=== PATIENT | female | born 1995 | race Caucasian/White ===

== ENCOUNTER 2017-03-03 18:15 | Emergency (ER) | payer BC ==
[~2017-03-03] VITALS: Ht 165.1 cm; Wt 88.0 kg
[~2017-03-03 18:15] MED LIST: DEPO-PROVER150 MG/ML IM; ENDOCET 5-3251 EACH PO; FLEXERIL10 MG PO; MOTRIN800 MG PO; NAPROSYN500 MG PO; PERCOCET 5/31 TABLET PO; PRENATAL TABLE1 EAC3 PO; RHINOCORT AQUA8.6 G1 NS; TRAMADOL HCL50 MG PO; TUMS500 MG PO; WELLBUTRIN SR100 MG PO; ZANTAC150 MG PO; ZOFRAN ODT4 MG PO
[2017-03-03 18:23] VITALS: BP 106/90
[2017-03-03] MEDS ORDERED: TRILEPTAL150 MG PO (19:07)
[2017-03-03 19:44] LABS: ADD MIUA? YES; BILIRUBIN NEGATIVE; BLOOD NEGATIVE; COLOR YELLOW ((YELLOW)); GLUCOSE (STRIP) NEGATIVE; KETONES NEGATIVE; LEUKOCYTES TRACE; NITRITE NEGATIVE; PROTEIN (STRIP) NEGATIVE; SPECIFIC GRAVITY 1.012 (1.000-1.030); UROBILINOGEN 0.2 MG/DL (0.2-1.0)
[2017-03-03 19:55] LABS: BACTERIA RARE /HPF; EPITHELIAL CELLS RARE /HPF; MUCUS TRACE /LPF; RED BLOOD CELLS 0-5 /HPF (0-5); UCUL ADDED? NO; WHITE BLOOD CELLS 0-5 /HPF (0-5)
[2017-03-04 13:46] LABS: CHLAMYDIA TRACHOMATIS NEGATIVE; NEISSERIA GONORRHOEAE NEGATIVE
== END 2017-03-03 20:56 | disposition home or self-care (01) ==
LOC: EME 18:15
PROVIDERS: Nurse Practitioner Family
DX: R10.30 Lower abdominal pain, unspecified (principal); N89.8 Other specified noninflammatory disorders of vagina; Z11.3 Encounter for screening for infections with a predominantly sexual mode of transmission; Z20.2 Contact with and (suspected) exposure to infections with a predominantly sexual mode of transmission; F17.200 Nicotine dependence, unspecified, uncomplicated
CPT/HCPCS: 81003; 84702; 87210; 87491; 87591; 99281; 99283

== ENCOUNTER 2017-08-18 12:20 | Emergency (ER) | payer BC ==
[~2017-08-18] VITALS: Ht 165.1 cm; Wt 83.0 kg
[~2017-08-18 12:20] MED LIST changes: +TRILEPTAL150 MG PO
[2017-08-18 12:56] LABS: HEMATOCRIT 41.4 % (36.0-46.0); MCHC 33.1 G/DL (30.0-36.0); MCV 87.7 FL (83-99); MEAN PLAT.VOLUME 9.5 uM^3 (9.5-12.4); PLATELET COUNT 255 K/uL (156-360); RBC DIS.WIDTH-CV 12.9 % (11.8-14.6); RBC DIS.WIDTH-SD 41.7 % (39-53); RED BLOOD COUNT 4.72 M/uL (3.80-5.20); WHITE BLOOD COUNT 11.7 K/uL (4.1-10.2)
[2017-08-18 13:05] LABS: CHLORIDE 107 mEq/L (99-109); POTASSIUM 4.1 mEq/L (3.7-5.4); SODIUM 139 mEq/L (136-147)
[2017-08-18 13:07] LABS: GLUCOSE 101 mg/dL (70-99)
[2017-08-18 13:08] LABS: ANION GAP 7 MEQ/L (2-14)
[2017-08-18 13:09] LABS: TOTAL BILIRUBIN 0.4 mg/dL (0.0-1.0)
[2017-08-18 13:11] LABS: ALKALINE PHOSPHATASE 72 IU/L (3-129); GFR ESTIMATE (CALCULATED) > 59 mL/min/
[2017-08-18 13:12] LABS: UREA NITROGEN (BUN) 8 mg/dL (9-23)
[2017-08-18 13:19] LABS: QUANTITATIVE HCG < 4.0 MIU/ML
[2017-08-18] MEDS ORDERED: ZOFRAN ODT4 MG PO (15:36)
[2017-08-18 15:49] LABS: ADD MIUA? YES; BILIRUBIN NEGATIVE; BLOOD NEGATIVE; COLOR AMBER ((YELLOW)); GLUCOSE (STRIP) NEGATIVE; KETONES 5; LEUKOCYTES NEGATIVE; NITRITE NEGATIVE; PROTEIN (STRIP) 30
[2017-08-18 16:03] LABS: BACTERIA RARE /HPF; EPITHELIAL CELLS RARE /HPF; MUCUS 1+ /LPF; RED BLOOD CELLS 0-5 /HPF (0-5); UCUL ADDED? NO; WHITE BLOOD CELLS 0-5 /HPF (0-5)
[2017-08-18 16:18] VITALS: BP 109/61
== END 2017-08-18 16:27 | disposition home or self-care (01) ==
LOC: EME 12:20
DX: B34.9 Viral infection, unspecified (principal); R11.0 Nausea; R53.83 Other fatigue; J45.909 Unspecified asthma, uncomplicated; F32.9 Major depressive disorder, single episode, unspecified; F41.9 Anxiety disorder, unspecified; F17.200 Nicotine dependence, unspecified, uncomplicated; Z71.6 Tobacco abuse counseling; F12.90 Cannabis use, unspecified, uncomplicated
CPT/HCPCS: 80053; 81003; 84702; 85027; 99281; 99284; J1885

== ENCOUNTER 2017-10-16 18:04 | Emergency (ER) | payer BC ==
[~2017-10-16] VITALS: Ht 165.1 cm; Wt 81.8 kg
[2017-10-16 18:26] VITALS: BP 116/71
[2017-10-16 18:49] LABS: HEMATOCRIT 40.5 % (36.0-46.0); MCH 29.8 PG (29.0-34.0); MCHC 33.6 G/DL (30.0-36.0); MCV 88.6 FL (83-99); MEAN PLAT.VOLUME 9.9 uM^3 (9.5-12.4); PLATELET COUNT 196 K/uL (156-360); RBC DIS.WIDTH-SD 42.5 % (39-53); RED BLOOD COUNT 4.57 M/uL (3.80-5.20); WHITE BLOOD COUNT 12.1 K/uL (4.1-10.2)
[2017-10-16 19:10] LABS: CHLORIDE 103 mEq/L (99-109); POTASSIUM 4.2 mEq/L (3.7-5.4); SODIUM 137 mEq/L (136-147)
[2017-10-16 19:12] LABS: GLUCOSE 99 mg/dL (70-99)
[2017-10-16 19:13] LABS: ANION GAP 11 MEQ/L (2-14)
[2017-10-16 19:14] LABS: TOTAL BILIRUBIN 0.4 mg/dL (0.0-1.0)
[2017-10-16 19:15] LABS: ALKALINE PHOSPHATASE 88 IU/L (3-129); GFR ESTIMATE (CALCULATED) > 59 mL/min/
[2017-10-16 19:17] LABS: UREA NITROGEN (BUN) 7 mg/dL (9-23)
[2017-10-16 19:24] LABS: QUANTITATIVE HCG < 4.0 MIU/ML
[2017-10-16 19:46] LABS: ADD MIUA? YES; BILIRUBIN NEGATIVE; BLOOD MODERATE; COLOR YELLOW ((YELLOW)); GLUCOSE (STRIP) NEGATIVE; KETONES NEGATIVE; LEUKOCYTES SMALL; NITRITE NEGATIVE; PROTEIN (STRIP) 100; SPECIFIC GRAVITY 1.012 (1.000-1.030); UROBILINOGEN 0.2 MG/DL (0.2-1.0)
[2017-10-16 19:51] LABS: BACTERIA RARE /HPF; EPITHELIAL CELLS RARE /HPF; MUCUS TRACE /LPF; RED BLOOD CELLS 15-20 /HPF (0-5); UCUL ADDED? YES; WHITE BLOOD CELLS 40-50 /HPF (0-5)
[2017-10-16] MEDS ORDERED: KEFLEX500 MG PO (21:42)
[2017-10-19 12:39] LABS: CHLAMYDIA TRACHOMATIS NEGATIVE; NEISSERIA GONORRHOEAE NEGATIVE
== END 2017-10-16 22:00 | disposition home or self-care (01) ==
LOC: EME 18:04
PROVIDERS: Physician Assistant
DX: N39.0 Urinary tract infection, site not specified (principal); F17.200 Nicotine dependence, unspecified, uncomplicated; Z88.2 Allergy status to sulfonamides
CPT/HCPCS: 80053; 81003; 84702; 85027; 87077; 87086; 87186; 87210; 87491; 87591; 99281; 99284